=== PATIENT | female | born 1990 | race Caucasian/White ===

== ENCOUNTER 2017-02-14 08:59 | Emergency (ER) | payer MEDICAID ==
[2017-02-14 09:14] VITALS: BP 139/82
== END 2017-02-14 10:33 | disposition home or self-care (01) ==
LOC: ED 08:59
DX: R68.84 Jaw pain (principal); L21.0 Seborrhea capitis; E05.90 Thyrotoxicosis, unspecified without thyrotoxic crisis or storm; Z32.02 Encounter for pregnancy test, result negative

== ENCOUNTER 2017-02-22 08:03 | Emergency (ER) | payer MEDICAID ==
[2017-02-22 08:46] LABS: microscopic required? YES; urine erythrocyte 3+ (NEGATIVE)
[2017-02-22 08:47] LABS: BASOPHIL % 0.3 % (0-2); PLATELET COUNT 240 x10^3mcL (130-400); RED CELL DISTRIBUTION WIDTH 13.7 % (11.5-14.5)
[2017-02-22 08:58] LABS: CALCIUM 8.7 mg/dL (8.5-10.1); CARBON DIOXIDE 27.3 mmol/L (21-32); CHLORIDE SERUM 105 mmol/L (98-107); CREATININE SERUM 0.6 mg/dL (0.6-1.0); GFR1 > 60 mL/min; GLUCOSE SERUM 89 mg/dL (74-106); SODIUM SERUM 139 mmol/L (136-145)
[2017-02-22 09:11] LABS: ALKALINE PHOSPHATASE 96 U/L (46-116); ALT/SGPT 166 U/L (14-59); AST/SGOT 58 U/L (15-37); BILIRUBIN TOTAL 0.2 mg/dL (0.20-1.00); T4(THYROXINE) 6.4 ug/dL (4.7-13.3); TOTAL PROTEIN, SERUM 7.1 g/dL (6.4-8.2)
[2017-02-22 09:16] LABS: ALBUMIN 3.2 g/dL (3.4-5.0)
[2017-02-22 11:12] VITALS: BP 120/78
== END 2017-02-22 11:12 | disposition home or self-care (01) ==
LOC: ED 08:03
PROVIDERS: Emergency Medicine
DX: R07.89 Other chest pain (principal); E03.9 Hypothyroidism, unspecified; I10 Essential (primary) hypertension
CPT/HCPCS: 36415; J1885; Q0092

== ENCOUNTER 2017-03-01 09:26 | Emergency (ER) | payer MEDICAID ==
[~2017-03-01] VITALS: Ht 165.1 cm; Wt 56.7 kg
[2017-03-01 09:30] VITALS: BP 124/92
== END 2017-03-01 11:04 | disposition home or self-care (01) ==
LOC: ED 09:26
DX: K92.1 Melena (principal); I10 Essential (primary) hypertension

== ENCOUNTER 2017-11-14 08:26 | Emergency (ER) | payer MEDICAID ==
[~2017-11-14] VITALS: Ht 162.6 cm; Wt 59.9 kg
[2017-11-14 08:31] VITALS: Ht 162.6 cm; Wt 59.9 kg
[2017-11-14 09:23] LABS: BASOPHIL % 0.1 % (0-2); PLATELET COUNT 203 x10^3mcL (130-400); RED CELL DISTRIBUTION WIDTH 13.5 % (11.5-14.5)
[2017-11-14 09:24] LABS: microscopic required? NO
[2017-11-14 09:55] LABS: UA SPECIFIC GRAVITY 1.025 (1.005-1.035); urine erythrocyte NEGATIVE (NEGATIVE)
[2017-11-14 10:25] LABS: CARBON DIOXIDE 24.8 mmol/L (21-32); CHLORIDE SERUM 113 mmol/L (98-107); CREATININE SERUM 0.5 mg/dL (0.6-1.0); GFR1 > 60 mL/min; GLUCOSE SERUM 74 mg/dL (74-106); POTASSIUM SERUM 4.1 mmol/L (3.5-5.1); SODIUM SERUM 135 mmol/L (136-145); TOTAL PROTEIN, SERUM 6.5 g/dL (6.4-8.2)
[2017-11-14 10:26] LABS: ALKALINE PHOSPHATASE 53 U/L (46-116); ALT/SGPT 32 U/L (14-59); AST/SGOT 23 U/L (15-37); BILIRUBIN TOTAL 0.4 mg/dL (0.20-1.00); CALCIUM 8.1 mg/dL (8.5-10.1); LIPASE 129 IU/L (73-393)
[2017-11-14 10:47] LABS: FREE T4 0.74 ng/dL (0.76-1.46)
[2017-11-14 11:00] VITALS: BP 113/73
== END 2017-11-14 11:58 | disposition home or self-care (01) ==
LOC: ED 08:26
PROVIDERS: Emergency Medicine
DX: O21.9 Vomiting of pregnancy, unspecified (principal); Z3A.08 8 weeks gestation of pregnancy; I10 Essential (primary) hypertension; E03.9 Hypothyroidism, unspecified
CPT/HCPCS: 84439; J2765; J7030; Q0092

== ENCOUNTER 2017-11-28 18:58 | Inpatient (IN) | payer MEDICAID ==
[~2017-11-28] VITALS: Ht 165.1 cm; Wt 63.5 kg
[2017-11-28 19:21] VITALS: Ht 165.1 cm; Wt 63.5 kg
[2017-11-28 21:31] LABS: BASOPHIL % 0.3 % (0-2); PLATELET COUNT 211 x10^3mcL (130-400); RED CELL DISTRIBUTION WIDTH 14.5 % (11.5-14.5)
[2017-11-28 21:41] LABS: CALCIUM 8.1 mg/dL (8.5-10.1); CARBON DIOXIDE 28.4 mmol/L (21-32); CHLORIDE SERUM 103 mmol/L (98-107); CREATININE SERUM 0.5 mg/dL (0.6-1.0); GFR1 > 60 mL/min; GLUCOSE SERUM 83 mg/dL (74-106); POTASSIUM SERUM 3.8 mmol/L (3.5-5.1); SODIUM SERUM 137 mmol/L (136-145)
[2017-11-28 21:46] LABS: ALKALINE PHOSPHATASE 56 U/L (46-116); ALT/SGPT 52 U/L (14-59); AST/SGOT 44 U/L (15-37); BILIRUBIN TOTAL 0.2 mg/dL (0.20-1.00); LIPASE 100 IU/L (73-393); TOTAL PROTEIN, SERUM 6.9 g/dL (6.4-8.2)
[2017-11-28 21:48] LABS: ALBUMIN 3.2 g/dL (3.4-5.0)
[2017-11-28 21:55] LABS: microscopic required? NO
[2017-11-28 22:25] LABS: urine erythrocyte NEGATIVE (NEGATIVE)
[2017-11-29 01:25] LABS: MAGNESIUM 2.1 mg/dL (1.8-2.4); PHOSPHOROUS 4.3 mg/dL (2.5-4.9); T3 TOTAL 1.44 ng/mL
[2017-11-29 01:34] VITALS: BP 122/80
[2017-11-29 01:35] LABS: FREE T4 0.77 ng/dL (0.76-1.46); FREE THYROXINE INDEX 2.3 ug/dL (1.4-4.5); T4(THYROXINE) 8.9 ug/dL (4.7-13.3)
[2017-11-29 06:21] VITALS: BP 131/72
[2017-11-29 06:29] LABS: BASOPHIL % 0.4 % (0-2); PLATELET COUNT 191 x10^3mcL (130-400); RED CELL DISTRIBUTION WIDTH 14.5 % (11.5-14.5)
[2017-11-29 06:47] LABS: CALCIUM 7.8 mg/dL (8.5-10.1); CHLORIDE SERUM 103 mmol/L (98-107); CREATININE SERUM 0.5 mg/dL (0.6-1.0); GFR1 > 60 mL/min; GLUCOSE SERUM 71 mg/dL (74-106); MAGNESIUM 1.9 mg/dL (1.8-2.4); PHOSPHOROUS 3.2 mg/dL (2.5-4.9); POTASSIUM SERUM 3.5 mmol/L (3.5-5.1); SODIUM SERUM 136 mmol/L (136-145)
[2017-11-29 09:00] VITALS: BP 111/72
[2017-11-29 10:24] LABS: AMPHETAMINE QUAL UR NONE DETECTED (See below)
[2017-11-29 11:45] VITALS: BP 108/68
[2017-11-29 17:00] VITALS: BP 118/76
[2017-11-29 20:43] VITALS: BP 116/69
[2017-11-30 06:01] VITALS: BP 116/71
[2017-11-30 09:12] VITALS: BP 115/76
[2017-11-30 13:10] VITALS: BP 110/79
[2017-11-30 13:22] VITALS: BP 115/79
[2017-11-30 17:05] VITALS: BP 118/74
[2017-11-30] MEDS ORDERED: PRENATAL VITAMI1 TA1 PO (17:42)
[2017-11-30] MEDS ORDERED: NATURAL IRON65 MG PO (17:42)
[2017-11-30] MEDS ORDERED: COLACE100 MG PO (17:42)
== END 2017-11-30 19:00 | disposition home or self-care (01) | DRG 251 ==
LOC: ED 18:58 → DU 11-29 00:09
PROVIDERS: Emergency Medicine; Family Medicine
DX: R10.31 Right lower quadrant pain (principal); E44.0 Moderate protein-calorie malnutrition; O25.11 Malnutrition in pregnancy, first trimester; O99.281 Endocrine, nutritional and metabolic diseases complicating pregnancy, first trimester; E03.9 Hypothyroidism, unspecified; E04.9 Nontoxic goiter, unspecified; O99.341 Other mental disorders complicating pregnancy, first trimester; F41.9 Anxiety disorder, unspecified; Z3A.12 12 weeks gestation of pregnancy; Z33.1 Pregnant state, incidental; L40.8 Other psoriasis
CPT/HCPCS: 83880; 84439; J2765; J7030; Q0092